=== PATIENT | female | born 1980 | race Caucasian/White ===

== ENCOUNTER → 2016-11-01 | Outpatient (CLI) | payer BC ==
[~2016-11-01] MED LIST: SODIUM CHLORIDE 0.9% 250 ML in EMPTY BAG 1 BAG IV PRN; SODIUM CHLORIDE 0.9% 500 ML in EMPTY BAG 1 BAG IV PRN
[2016-11-01 09:08] VITALS: RESP 18; TEMP 97.1
[2016-11-01 10:21] VITALS: PULSE 60
[2016-11-01 10:42] VITALS: BP 92/61
== END | disposition home or self-care (01) ==
LOC: PROCWHC3 08:47
PROVIDERS: ATTEND Internal Medicine Gastroenterology
DX: K50.119 Crohn's disease of large intestine with unspecified complications (principal)
CPT/HCPCS: 96361; 96413; 96415; J1745

== ENCOUNTER → 2016-12-13 | Outpatient (CLI) | payer BC ==
[2016-12-13 09:19] VITALS: TEMP 98.6
[2016-12-13 10:37] VITALS: BP 104/64; PULSE 60; RESP 16
== END | disposition home or self-care (01) ==
LOC: PROCWHC3 08:48
PROVIDERS: ATTEND Internal Medicine Gastroenterology
DX: K50.119 Crohn's disease of large intestine with unspecified complications (principal)
CPT/HCPCS: 96413; 96415; J1745; 96361

== ENCOUNTER → 2017-01-24 | Outpatient (CLI) | payer BC ==
[2017-01-24 09:06] VITALS: TEMP 97.8
[2017-01-24 10:15] VITALS: BP 92/56; PULSE 59; RESP 16
== END | disposition home or self-care (01) ==
LOC: PROCWHC3 08:46
PROVIDERS: ATTEND Internal Medicine Gastroenterology
DX: K50.90 Crohn's disease, unspecified, without complications (principal)
CPT/HCPCS: 96413; 96415; J1745

== ENCOUNTER → 2017-03-07 | Outpatient (CLI) | payer BC ==
[2017-03-07 08:57] VITALS: TEMP 98.6
[2017-03-07 09:40] VITALS: RESP 18
[2017-03-07 10:35] VITALS: BP 89/62; PULSE 66
== END | disposition home or self-care (01) ==
LOC: PROCWHC3 08:49
PROVIDERS: ATTEND Internal Medicine Gastroenterology
DX: K50.119 Crohn's disease of large intestine with unspecified complications (principal)
CPT/HCPCS: 96413; 96415; J1745

== ENCOUNTER → 2017-04-02 | Outpatient (CLI) | payer BC ==
[~2017-04-02] MED LIST changes: -SODIUM CHLORIDE 0.9% 250 ML in EMPTY BAG 1 BAG IV PRN; -SODIUM CHLORIDE 0.9% 500 ML in EMPTY BAG 1 BAG IV PRN; +TUBERCULIN PPD (SKIN TEST) 5 UNIT/0.1 ML (MDV) VIAL INTRADERMA ONE
[2017-04-02 15:00] VITALS: BP 108/67; PULSE 59; RESP 15; TEMP 98.2
== END | disposition home or self-care (01) ==
LOC: PROCWHC3 14:38
PROVIDERS: ATTEND Internal Medicine Gastroenterology
DX: K50.119 Crohn's disease of large intestine with unspecified complications (principal)
CPT/HCPCS: 86580

== ENCOUNTER → 2017-04-18 | Outpatient (CLI) | payer BC ==
[~2017-04-18] MED LIST changes: +LORATADINE 10 MG TAB PO ONE; +SODIUM CHLORIDE 0.9% 250 ML in EMPTY BAG 1 BAG IV PRN; +SODIUM CHLORIDE 0.9% 500 ML in EMPTY BAG 1 BAG IV PRN; -TUBERCULIN PPD (SKIN TEST) 5 UNIT/0.1 ML (MDV) VIAL INTRADERMA ONE
[2017-04-18 08:42] VITALS: TEMP 97.8
[2017-04-18 10:29] VITALS: BP 95/53; PULSE 62; RESP 16
== END ==
LOC: PROCWHC3 08:30
PROVIDERS: ATTEND Internal Medicine Gastroenterology
DX: Z51.11 Encounter for antineoplastic chemotherapy (principal); K50.90 Crohn's disease, unspecified, without complications
CPT/HCPCS: 96413; 96415; J1745

== ENCOUNTER → 2017-05-30 | Outpatient (CLI) | payer BC ==
[~2017-05-30] MED LIST changes: -LORATADINE 10 MG TAB PO ONE; -SODIUM CHLORIDE 0.9% 250 ML in EMPTY BAG 1 BAG IV PRN
[2017-05-30 09:19] VITALS: TEMP 98.1
[2017-05-30 09:58] LABS: Basophils % (A) 1 %; CH 30.5; CHCM 34.1; Eosinophils # (A) 0.1 k/uL (0-0.7); Eosinophils % (A) 1 %; HCT 38.7 % (34.0-46.0); HDW 2.58; HGB 13.1 gm/dL (11.4-16.0); Luc # (Auto) 0.15; Luc % (Auto) 3; Lymphocytes # (A) 2.5 k/uL (1.0-4.8); Lymphocytes % (A) 45 %; MCH 30.5 pg (25.0-35.0); MCHC 33.9 g/dL (31.0-37.0); Mean Platelet Volume 8.8; Monocytes # (A) 0.4 k/uL (0-1.0); Monocytes % (A) 6 %; Neutrophils # (A) 2.5 k/uL (1.3-7.7); Neutrophils % (A) 45 %; WBC 5.5 k/uL (3.8-10.6); WBC (Perox) 5.63
[2017-05-30 10:20] LABS: ALT 35 U/L (9-52); AST 16 U/L (14-36); Alkaline Phosphatase 37 U/L (38-126); Anion Gap 11 mmol/L; Blood Urea Nitrogen 10 mg/dL (7-17); Calcium 9.1 mg/dL (8.4-10.2); Carbon Dioxide 19 mmol/L (22-30); Chloride 112 mmol/L (98-107); Glucose 87 mg/dL (74-99); Non-African American GFR(MDRD) >60 (>60 ml/min/1.73 sqM); Potassium 3.3 mmol/L (3.5-5.1); Sodium 142 mmol/L (137-145); Total Bilirubin 0.5 mg/dL (0.2-1.3); Total Protein 7.1 g/dL (6.3-8.2)
[2017-05-30 11:05] VITALS: BP 99/64; PULSE 57; RESP 18
== END | disposition home or self-care (01) ==
LOC: PROCWHC3 08:45
PROVIDERS: ATTEND Internal Medicine Gastroenterology
DX: K50.119 Crohn's disease of large intestine with unspecified complications (principal); K50.00 Crohn's disease of small intestine without complications
CPT/HCPCS: 80053; 85025; 96413; 96415; J1745

== ENCOUNTER → 2017-07-11 | Outpatient (CLI) | payer BC ==
[2017-07-11 09:08] VITALS: TEMP 98.2
[2017-07-11 10:28] VITALS: BP 116/76; PULSE 73; RESP 18
== END | disposition home or self-care (01) ==
LOC: PROCWHC3 08:49
PROVIDERS: ATTEND Internal Medicine Gastroenterology
DX: K50.00 Crohn's disease of small intestine without complications (principal)
CPT/HCPCS: 96413; 96415; J1745

== ENCOUNTER → 2017-08-22 | Outpatient (CLI) | payer BC ==
[2017-08-22 08:54] VITALS: RESP 16; TEMP 98.2
[2017-08-22 10:18] VITALS: BP 96/56; PULSE 57
== END | disposition home or self-care (01) ==
LOC: PROCWHC3 08:34
PROVIDERS: ATTEND Internal Medicine Gastroenterology
DX: K50.00 Crohn's disease of small intestine without complications (principal)
CPT/HCPCS: 96413; 96415; J1745

== ENCOUNTER → 2019-06-08 | Outpatient (CLI) | payer OTHER ==
--- NOTE | 2019-06-08 22:40 | US ---
EXAMINATION TYPE: US transvaginal DATE OF EXAM: 06/08/2019 COMPARISON: NONE CLINICAL HISTORY: 38-year-old female R10.2 pelvic pain; N92.1 Metrorrhagia. TECHNIQUE: Transvaginal (TV). Patient unable to fill bladder. Date of LMP: 04/18/19 FINDINGS: EXAM MEASUREMENTS: Uterus: 7.8 x 3.6 x 4.7 cm Endometrial Stripe: 0.7 cm Right Ovary: 4.7 x 2.6 x 2.4 cm Left Ovary: 2.8 x 1.0 x 1.3 cm 1. Uterus: Anteverted. Wnl, IUD appears appropriately situated within the uterine cavity. 2. Endometrium: wnl 3. Right Ovary: 2 complex masses largest measuring 3.1 x 2.7 x 2.3, possible hemorrhagic cyst 4. Left Ovary: follicles noted 5. Bilateral Adnexa: wnl 6. Posterior cul-de-sac: wnl IMPRESSION: 1. Satisfactory positioning of the IUD. 2. Two complex lesions within the right ovary, largest measuring 3.1 cm. Suspect hemorrhagic cyst wit h areas of retractile clot. A follow-up in 6-8 weeks can reassess.
== END | disposition home or self-care (01) ==
LOC: RADUSWWP 14:01
PROVIDERS: ATTEND Obstetrics & Gynecology
DX: N83.8 Other noninflammatory disorders of ovary, fallopian tube and broad ligament (principal); Z97.5 Presence of (intrauterine) contraceptive device
CPT/HCPCS: 76830

== ENCOUNTER → 2019-07-22 | Outpatient (CLI) | payer OTHER ==
--- NOTE | 2019-07-23 04:07 | US ---
EXAMINATION TYPE: US pelvic complete DATE OF EXAM: 07/22/2019 COMPARISON: 06/08/2019 CLINICAL HISTORY: 38-year-old female N83.0 OVARIAN CYST. Follow-up ovarian cysts. Hx IUD. TECHNIQUE: Transabdominal sonographic images of the pelvis were acquired. Date of LMP: 07/04/2019, FINDINGS: EXAM MEASUREMENTS: Uterus: 8.9 x 4.0 x 3.3 cm Endometrial Stripe: 0.5 cm Right Ovary: 3.9 x 1.9 x 2.0 cm Left Ovary: 3.0 x 2.0 x 1.1 cm 1. Uterus: Anteverted and otherwise wnl 2. Endometrium: wnl, IUD visualized appropriately situated along the uterine cavity. 3. Right Ovary: Dominant follicle = 2.0 cm 4. Left Ovary: no masses or lesions seen 5. Bilateral Adnexa: wnl, peristalsing bowel 6. Posterior cul-de-sac: no free fluid 7. Cervix: wnl IMPRESSION: 1. IUD visualized appropriately situated along the uterine cavity. 2. A 2 cm dominant follicle or functional cyst in the right ovary. The 2 complex lesions measuring up to 3.1 cm seen previously have resolved suggesting transient hemorrhagic cysts. 3. No pelvic free fluid.
== END ==
LOC: RADUSWWP 15:59
PROVIDERS: ATTEND Obstetrics & Gynecology
DX: N83.201 Unspecified ovarian cyst, right side (principal); Z97.5 Presence of (intrauterine) contraceptive device
CPT/HCPCS: 76856